=== PATIENT | male | born 1950 | race African-American/Black ===

== ENCOUNTER 2025-06-20 01:44 | Inpatient (IN) | payer MEDICARE, OTHER ==
[2025-06-20] MEDS ORDERED: Acetaminophen 325 MG TAB PO PRN (05:42)
[2025-06-20] MEDS ORDERED: Ondansetron PF 4 MG/2 ML Vial IVP PRN (05:42)
[2025-06-20] MEDS ORDERED: Calcium Carbonate 500 MG ChewTAB PO PRN (05:42)
[2025-06-20] MEDS ORDERED: Electrolyte Replacement Protocol 1 EACH FS SCH (05:45)
[2025-06-20] MEDS ORDERED: PHOS-NAK 1 PKT PACK PO PRN (06:30)
[2025-06-20] MEDS ORDERED: Potassium Chloride 20 MEQ in Premix 1 BAG IVPB PRN (06:30)
[2025-06-20] MEDS ORDERED: Magnesium Sulfate In Water 4 GM in Premix 1 BAG IVPB PRN (06:30)
[2025-06-20 10:56] LABS: Hematocrit 35.4 % (42.0-52.0); Hemoglobin 11.2 g/dL (14.0-18.0); Mean Corpuscular Hemoglobin 27.5 pg (27.0-31.0); Mean Corpuscular Volume 86.8 fL (78.0-98.0); Platelet Count 201 10x3/uL (130-400); Red Blood Cell (RBC) Count 4.08 mill/uL (4.70-6.10); White Blood Cell (WBC) Count 5.54 10x3/uL (4.8-10.8)
[2025-06-20 11:07] LABS: ALT (SGPT) 17 U/L (Less than 45); AST (SGOT) 30 U/L (11-34); Albumin 3.4 g/dL (3.1-4.5); Alkaline Phosphatase 76 U/L (40-110); Anion Gap 13 mmol/L (10-20); BUN (Urea Nitrogen) 9 mg/dL (8.4-25.7); Bilirubin, Total 1.5 mg/dL (0.3-1.2); Calc. Creatinine Clearance 0 mL/min (70-130); Calcium 8.9 mg/dL (7.8-10.44); Carbon Dioxide 24 mmol/L (23-31); Chloride 108 mmol/L (98-107); Globulin 2.8 g/dL (2.4-3.5); Glucose 80 mg/dL (83-110); Potassium 4.0 mmol/L (3.5-5.1); Sodium 141 mmol/L (136-145)
[2025-06-20 11:24] LABS: #Basophils 0.03 10x3/uL (0.0-0.2); #Eosinophils Less than 0.03 10x3/uL (0.0-0.7); #Monocytes 0.56 10x3/uL (0.11-0.59); #Neutrophils 3.84 10x3/uL (1.40-6.50); %Basophils 0.5 % (0.0-1.0); %Eosinophils 0.0 % (0.0-10.0); %Lymphocytes 19.9 % (21.0-51.0); %Monocytes 10.1 % (0.0-10.0); %Neutrophils 69.3 % (42.0-75.0); Ovalocytes MARKED = >16 cells (100X) (0-1/hpf); Plasma Cells 0 % (0-0); Platelet Adequacy Comment Appears Adequate
[2025-06-20 15:33] VITALS: BMI 17.2
[2025-06-20] MEDS: FLU (Fluad Triv) 25-26 (65UP)PF 45 MCG/0.5 ML Syringe IM ONE (16:18)
[2025-06-20] MEDS: PNEUMOC 20-VAL CONJ-DIP CRM/PF 0.5 ML SYRINGE IM ONE (16:18)
[2025-06-20] MEDS ORDERED: Memantine 5 MG TAB PO SCH (21:00)
[2025-06-20] MEDS: Dorzolamide HCl 2% Ophth (10 mL) Bottle EA EYE SCH (21:10)
[2025-06-20] MEDS: QUEtiapine 25 MG TAB PO SCH (21:43)
[2025-06-21 05:23] LABS: ALT (SGPT) 14 U/L (Less than 45); AST (SGOT) 28 U/L (11-34); Albumin 3.3 g/dL (3.1-4.5); Alkaline Phosphatase 77 U/L (40-110); Anion Gap 12 mmol/L (10-20); BUN (Urea Nitrogen) 12 mg/dL (8.4-25.7); Bilirubin, Total 1.2 mg/dL (0.3-1.2); Calc. Creatinine Clearance 69 mL/min (70-130); Calcium 9.0 mg/dL (7.8-10.44); Carbon Dioxide 27 mmol/L (23-31); Chloride 107 mmol/L (98-107); Globulin 2.9 g/dL (2.4-3.5); Glucose 75 mg/dL (83-110); Potassium 3.5 mmol/L (3.5-5.1); Sodium 142 mmol/L (136-145)
[2025-06-21 05:39] LABS: #Basophils Less than 0.03 10x3/uL (0.0-0.2); #Eosinophils Less than 0.03 10x3/uL (0.0-0.7); #Monocytes 0.43 10x3/uL (0.11-0.59); #Neutrophils 2.56 10x3/uL (1.40-6.50); %Basophils 0.2 % (0.0-1.0); %Eosinophils 0.0 % (0.0-10.0); %Lymphocytes 27.8 % (21.0-51.0); %Monocytes 10.3 % (0.0-10.0); %Neutrophils 61.5 % (42.0-75.0); Hematocrit 34.3 % (42.0-52.0); Hemoglobin 10.5 g/dL (14.0-18.0); Mean Corpuscular Hemoglobin 27.3 pg (27.0-31.0); Mean Corpuscular Volume 89.1 fL (78.0-98.0); Platelet Count 198 10x3/uL (130-400); Red Blood Cell (RBC) Count 3.85 mill/uL (4.70-6.10); White Blood Cell (WBC) Count 4.17 10x3/uL (4.8-10.8)
[2025-06-21 08:38] LABS: Magnesium 1.8 mg/dL (1.6-2.6)
[2025-06-21] MEDS ORDERED: QUEtiapine 25 MG TAB PO SCH (09:00)
[2025-06-21] MEDS: Thiamine 100 MG TAB PO SCH (09:38)
[2025-06-21] MEDS: NIFEdipine XL 60 MG ER.TAB PO SCH (10:52)
[2025-06-21] MEDS: QUEtiapine 25 MG TAB PO SCH (20:36)
[2025-06-22] MEDS ORDERED: NIFEdipine XL 60 MG ER.TAB PO SCH (09:00)
[2025-06-22] MEDS: NIFEdipine XL 30 MG ER.TAB PO SCH (09:48)
[2025-06-22 11:40] VITALS: BP 92/51; TEMP 96.8
== END 2025-06-22 13:30 | disposition home or self-care (01) | DRG 308 ==
LOC: ERS 01:44 → ERHOLD 05:50 → 2NO 15:18 → OBSVTOIN 06-21 16:38
PROVIDERS: ADMIT Student in an Organized Health Care Education/Training Program; ATTEND Internal Medicine
DX: R00.1 Bradycardia, unspecified (principal); G93.41 Metabolic encephalopathy; I10 Essential (primary) hypertension; E78.5 Hyperlipidemia, unspecified; H40.9 Unspecified glaucoma; Z74.01 Bed confinement status; Z79.899 Other long term (current) drug therapy; F03.C0 Unspecified dementia, severe, without behavioral disturbance, psychotic disturbance, mood disturbance, and anxiety; E86.0 Dehydration; Z88.5 Allergy status to narcotic agent; N40.0 Benign prostatic hyperplasia without lower urinary tract symptoms
CPT/HCPCS: 36415; 80053; 83735; 83880; 84100; 84443; 84484; 85025; 93005; 93306; 94760